=== PATIENT | male | born 1970 | race Caucasian/White ===

== ENCOUNTER 2021-06-07 20:51 | Observation (INO) | payer OTHER, SELFPAY ==
[2021-06-07 20:57] VITALS: BP 143/99; PULSE 98; RESP 18; TEMP 36.9; O2SAT 96
--- NOTE | 2021-06-07 21:25 | W.ED.GENAD ---
Discharge Plan Disposition Patient Disposition: [facility] INPATIENT Condition: Stable Discharge Details Clinical Impression: Perianal abscess, Cellulitis of buttock, left Admit Date/Time: 06/07/21 23:56 Admit Provider: Brigid Madison Attending Provider: Brigid Madison Primary Care Provider: Unknown,Unknown ED Provider: Shira Ball Discharge Data Discharge Date/Time-TO BE ENTERED AT DEPARTURE: 06/08/21 00:35 Medical Decision Making 51-year-old [facility] presents for rectal abscess the past week now more painful and draining pus and blood. Patient appears comfortable and nontoxic. His blood pressure is hypertensive and heart rate elevated. He has a 2 cm fluctuant abscess in the left perirectal region with a subcentimeter area of surrounding cellulitis. There is no crepitus or pulsatile bleeding. Due to location of abscess in close proximity to the rectum, will obtain screening labs and CT to assess extent of abscess in this region. Labs reviewed. Normal WBC. Normal lactate. Delay in obtaining CT results. CT abdomen/pelvis notes: IMPRESSION: 1. Irregularly-shaped perianal phlegmon/developing abscess with surrounding mild cellulitis. 2. Indeterminate hepatic lesions, nonemergent MRI is suggested for further characterization. Case d/w Dr. Madison who reviewed images. Recommend attempt at incision and drainage and if able to remove pus and patient tolerates this well, can discharge home with clindamycin. If patient unable to tolerate or unable to remove pus, will admit for observation and IV antibiotics. Attempted I&D at bedside. Patient initially refused due to pain but able to inject 3 cc of lidocaine with epinephrine. Incision with a #11 blade but patient having difficulty tolerating. Able to extend forceps 1-2cm deep within tissue but no pus drainage removed. Case discussed with Dr. Madison who accepts patient for admission. IV clindamycin ordered. Ordered morphine IV for pain. Patient will remain n.p.o. Medical Records Medical records reviewed: Yes I reviewed the patient's medical records. Imaging Data Radiologic Study: Radiologist's impression: CT Abdomen And Pelvis With Contrast Exam date and time: 06/07/2021 9:25 PM Age: 51 years old Clinical indication: Other: L perirectal abscess, assess extension of abscess TECHNIQUE: Imaging protocol: Computed tomography of the abdomen and pelvis with contrast. Radiation optimization: All CT scans at this facility use at least one of these dose optimization techniques: automated exposure control; mA and/or kV adjustment per patient size (includes targeted exams where dose is matched to clinical indication); or iterative reconstruction. Contrast material: OMNIPAQUE 350; Contrast volume: 100 ml; Contrast route: INTRAVENOUS (IV); COMPARISON: No relevant prior studies available. FINDINGS: Lungs: Trace linear atelectasis and/or scarring in the right lung base. No consolidation. Pleural spaces: No pleural effusion. Heart: Normal heart size without pericardial effusion. Liver: 1.4 cm low-attenuation lesion in the left hepatic lobe, indeterminate (series 4, image 19). An additional low-attenuation lesion in the inferior right hepatic lobe measures 0.7 cm (series 4, image 36). Otherwise within normal limits. Gallbladder and bile ducts: Normal. No calcified stones. No ductal dilation. Pancreas: Normal. No ductal dilation. Spleen: Normal. No splenomegaly. Adrenal glands: Normal. No mass. Kidneys and ureters: Several subcentimeter hypoattenuating lesions in both kidneys are too small to further characterize. Stomach and bowel: The stomach is within normal limits. No bowel obstruction or wall thickening. Moderate to large volume of stool in the colon. Appendix: Normal appendix. Intraperitoneal space: No free fluid, pneumoperitoneum, or intra-abdominal drainable fluid collection. Vasculature: No abdominal aortic aneurysm. Lymph nodes: No enlarged lymph nodes. Urinary bladder: Unremarkable as visualized. Reproductive: Unremarkable as visualized. Bones/joints: Degenerative changes of the spine. No acute fracture or malalignment. Soft tissues: In the perianal soft tissues, there is an irregularly-shaped region of low attenuation, difficult to measure given the shape but approximately 1.9 x 0.9 x 2.1 cm (series 4, images 96 through 92 and series 7 images 61 through 57) in keeping with phlegmon/developing abscess. There is trace surrounding infiltration in keeping with cellulitis. The low-attenuation is in the midline inferiorly and extends to the left of midline more superiorly centered approximately 1.0 cm to the left of the anal fold on series 4, image 93). No intra-abdominal extension. IMPRESSION: 1. Irregularly-shaped perianal phlegmon/developing abscess with surrounding mild cellulitis. 2. Indeterminate hepatic lesions, nonemergent MRI is suggested for further characterization. Lab Data Lab results reviewed: Yes I reviewed the patient's lab results. Labs: 06/07/21 22:30 Blood Blood Culture - Pending 06/07/21 21:35 Blood Blood Culture - Pending Laboratory Tests Range/Units 06/07/21 06/07/21 06/07/21 21:35 21:35 21:35 WBC (4.4-10.8) 10^3/uL 7.03 RBC (4.36-5.78) 10^6/uL 3.89 L Hgb (13.5-17.5) g/dL 11.7 L Hct (40.0-50.0) % 34.4 L MCV (80-95) fL 88.4 MCH (27.0-33.0) pg 30.1 MCHC (32.0-36.0) % 34.0 RDW (11.8-14.1) % 11.9 Plt Count (130-400) 10^3/uL 167 MPV (8.0-11.0) fL 9.9 Immature Gran % 0.3 Neutrophils % 69.9 Lymphocytes % 16.1 Monocytes % 11.8 Eosinophils % 1.6 Basophils % 0.3 Nucleated RBC % % 0 Absolute Neutrophils (1.2-6.7) 10^3/uL 4.92 Absolute Lymphocytes (1.2-3.4) 10^3/uL 1.13 L Absolute Monocytes (0.1-0.8) 10^3/uL 0.83 H Absolute Eosinophils (0.0-0.7) 10^3/uL 0.11 Absolute Basophils (0.0-0.2) 10^3/uL 0.02 VBG Lactate (0.6-1.4) mmol/L 1.0 Sodium (136-145) mmol/L 138 Potassium (3.5-5.1) mmol/L 3.9 Chloride (98-107) mmol/L 102 Carbon Dioxide (21.0-32.0) mmol/L 34.8 H Anion Gap (3-11) mmol/L 1.2 L BUN (7-18) mg/dL 16 Creatinine (0.70-1.30) mg/dL 1.0 Estimated GFR/1.73 m2 (mL/min/1.73m2) >= 60.00 Glucose (74-106) mg/dL 111 H Calcium (8.5-10.1) mg/dL 8.8 Total Bilirubin (0.2-1.0) mg/dL 0.6 AST (15-37) U/L 78 H ALT (16-63) U/L 29 Alkaline Phosphatase (46-116) U/L 65 Total Protein (6.4-8.2) g/dL 7.7 Albumin (3.4-5.0) g/dL 3.5 HPI General Mode of arrival: ambulatory. Date/Time Provider Initiated Documentation: 06/07/21 21:01. Limitations to Documentation: no limitations. Information obtained by: patient. HPI Narrative: Patient is a 51-year-old male from the [facility] presents with painful abscess to his left buttock for the past week, now draining pus and blood and more painful today. Patient states he was evaluated by medical staff at the [facility] and told he likely had a hemorrhoid. He denies any fever or abdominal pain but does admit to a few episodes of vomiting. States his last bowel movement was 2 days ago and soft. States he has a BM normally daily. Related Data Home Medications Medication Instructions Recorded Confirmed calcium 1,000 mg PO TID PRN 06/07/21 06/07/21 cocoa butter-shark liver oil 1 supp MD BID 06/07/21 06/07/21 [Hemorrhoidal H] docusate sodium 100 mg PO BID 06/07/21 06/07/21 hydroxyzine HCl 50 mg PO QHS 06/07/21 06/07/21 ibuprofen 600 mg PO BID PRN 06/07/21 06/07/21 ondansetron HCl [Zofran] 8 mg PO Q8H PRN 06/07/21 06/07/21 Allergies Allergy/AdvReac Type Severity Reaction Status Date / Time No Known Allergies Allergy Unverified 06/07/21 21:01 General Stated Complaint: Cellulitis JANESSA: 3 Review of Systems All systems reviewed & are unremarkable except as noted in HPI and below Constitutional Constitutional: Reports as per HPI, Denies chills and Denies fever(s) Eyes Eyes: Denies blurry vision ENT Ears, Nose, Mouth, and Throat: Denies dizziness, Denies sore throat and Denies throat swelling Cardiovascular Cardiovascular: Denies chest pain and Denies dyspnea Respiratory Respiratory: Denies cough and Denies dyspnea Gastrointestinal Gastrointestinal: Denies abdominal pain, Denies diarrhea and Denies vomiting Genitourinary Genitourinary: Denies hematuria and Denies dysuria Musculoskeletal Musculoskeletal: Denies back pain and Denies numbness Integumentary/Breasts Skin/Breast: Reports lesions and Denies rash Neurologic Neurologic: Denies dizziness, Denies localized weakness and Denies numbness Allergic/Immunologic Allergic/Immunologic: Denies throat swelling [facility] Medical History No significant past medical history Surgical History History of facial surgery Hardware to L jaw History of tonsillectomy Social History Smoking/Tobacco Use Status: Never Smoking risk assessment performed?: Yes Alcohol Intake: former Substance use type: does not use Do you feel safe at home: Yes Additional Social history: pt is currently an inmate at [facility] Exam Const General: cooperative and no acute distress HENMT Head: normal to inspection Face and sinus: normal facial exam Eyes General: appearance normal, both eyes and all related structures EOM: EOM intact bilaterally Neck Neck: normal visual inspection and No submandibular swelling Lymphatic: no lymphadenopathy noted Chest Chest: normal inspection of the chest and no tenderness Resp Effort & Inspection: normal respiratory effort and able to speak in complete sentences Auscultation: clear to auscultation bilaterally Cardio Rate: regular rate Rhythm: regular rhythm GI Inspection: normal to inspection Palpation: soft, not firm, not rigid and nontender Auscultation: normal bowel sounds Other: 2x2cm tender erythematous fluctuant abscess on L perirectal area with a 6cm area of induration and erythema extending from abscess on L buttock. No crepitus, rash, lesions or thrombosed hemorrhoids. Male General Exam: Yes normal external exam Skin General skin exam: no rashes or lesions noted Neuro General: patient alert, patient awake and patient oriented x3 Cognition: normal cognition Speech: speech normal Motor: muscle tone normal throughout Sensory Exam: no sensory deficits noted Extrem General: normal to inspection, full ROM, capillary refill normal, no calf tenderness bilaterally and no edema Psych Appearance: grossly normal Mental Status: mental status grossly normal Speech and Movement: speech and movement normal Affect: normal affect Course Vital Signs Vital signs: Vital Signs Temperature 98.4 F 06/07/21 20:57 Pulse 98 H 06/07/21 20:57 Respiratory Rate 18 06/07/21 20:57 Blood Pressure 143/99 H 06/07/21 20:57 Pulse Oximetry 96 06/07/21 20:57 Temperature 98.4 F 06/07/21 20:57 Temperature Source Skin 06/07/21 20:57 Pulse 98 H 06/07/21 20:57 Respiratory Rate 18 06/07/21 20:57 Respiratory Effort 06/07/21 21:10 Blood Pressure 143/99 H 06/07/21 20:57 Pulse Oximetry 96 06/07/21 20:57 Pain Level 10 06/07/21 20:57 Lab/Test Results Lab/Test Results: 06/07/21 21:22 Blood Blood Culture - Pending 06/07/21 21:22 Blood Blood Culture - Pending Procedures Abscess I/D Site: Trena-rectal (trena-anal) Side (if applicable): Left Local Anesthetic: Lidocaine 1% and With Epi Amount of anesthesia used (mL): 3 Technique: Incised with #11 Blade (x incision made over area of greatest fluctuance) Amount of fluid expressed (mL): 0 (used forceps to extend 1-2cm deep and laterally within tissue but no pus drainage) Irrigation: Yes Packing used?: None
[2021-06-07 21:49] LABS: Abs Immature Grans 0.02 10^3/uL (0.0-0.06); Absolute Basophil Count 0.02 10^3/uL (0.0-0.2); Absolute Eosinophil Count 0.11 10^3/uL (0.0-0.7); Absolute Lymphocyte Count 1.13 10^3/uL (1.2-3.4); Absolute Monocyte Count 0.83 10^3/uL (0.1-0.8); Absolute Neutrophil Count 4.92 10^3/uL (1.2-6.7); Basophils % 0.3; Eosinophils % 1.6; HCT 34.4 % (40.0-50.0); HGB 11.7 g/dL (13.5-17.5); Immature Grans % 0.3; Lymphocytes % 16.1; MCH 30.1 pg (27.0-33.0); MCV 88.4 fL (80-95); MPV 9.9 fL (8.0-11.0); Monocytes % 11.8; Neutrophils % 69.9; Nucleated RBC 0 %; Platelet Count 167 10^3/uL (130-400); RBC 3.89 10^6/uL (4.36-5.78); RDW 11.9 % (11.8-14.1); RDW-SD 38.1 fL; WBC 7.03 10^3/uL (4.4-10.8)
[2021-06-07] MEDS: Normal Saline Flush 10 ML SYR IVP (22:00)
[2021-06-07] MEDS: Normal Saline - Diluent 50 ML VIAL IV (22:00)
--- NOTE | 2021-06-07 22:05 | DI.CT_ITS ---
Exam(s) CT ABDOMEN PELVIS W EXAM: CT ABDOMEN PELVIS W CLINICAL HISTORY: L perirectal abscess, assess extension of abscess TECHNIQUE: Imaging Protocol: Axial computed tomography images with coronal and sagittal reformatted images were created and reviewed CONTRAST MATERIAL: Intravenous: Omnipaque 350 Contrast volume:100 mL Oral: No COMPARISON: No exams were available for comparison FINDINGS: ABDOMEN: Lung Bases: Dependent atelectasis. Coronary artery calcification. Liver: Normal density. There are 2 hypodense masses within the liver. The larger is in the left lobe and measures 1.5 x 1.5 cm. The 2nd is in the right lobe caudal aspect of the right lobe and measure s 1 x 0.7 cm. Portal, Superior Mesenteric, and Splenic Veins: Unremarkable. Gallbladder and Biliary Tract: No radiodense calculus or dilation. Pancreas: Normal density, no abnormal calcifications or inflammatory process. Spleen: Normal. Adrenals: No masses seen. Kidneys: Normal size, contour and axis. No radiodense stones or obstructive uropathy. There are few t iny hypodensities in the kidneys. They are too small for further characterization but likely reflect small cysts. Abdominal Aorta: Abdominal portion non-dilated. Mild atherosclerosis. Bowel: No obstruction or bowel wall thickening. Appendix is unremarkable. Peritoneal Cavity: No ascites, collection or mesenteric inflammatory response. No free air. Lymph Nodes: Within normal limits. Bones: Within normal limits for the patient's age. Soft Tissues: There is a small fat containing umbilical hernia. There is a small fat containing left inguinal hernia. In the perianal soft tissues there is a fluid attenuation lesion measuring approxi mately 2 x 1 x 2.1 cm. (Series 5 images 910 through 960). There is infiltration of the surrounding tissues consistent with cellulitis. Findings are consistent with a perianal abscess. PELVIS: Bladder: Symmetric distention, no gross wall thickening. Reproductive Organs: Unremarkable as visualized. Lymph Nodes: Within normal limits. Bones: Within normal limits for the patient's age. IMPRESSION: 1. Perianal fluid collection with surrounding inflammation suggestive of an abscess with surrounding cellulitis. 2. Indeterminate hepatic lesions. Nonemergent MRI of the liver is recommended for further evaluation . RADIATION DOSE DELIVERED: 792.09mGy.cm Total DLP DATA REPOSITORY: All CT scans at this facility are submitted to the National Radiology Data Registry (NRDR) Dose Index Registry (DIR) with the [employer] (ACR). RADIATION OPTIMIZATION: All CT scans at this facility use at least one of these dose optimization te chniques: automated exposure control; mA and/or kV adjustment per patient size (includes targeted exa ms where dose is matched to clinical indication); or iterative reconstruction.
[2021-06-07 22:22] LABS: ALT 29 U/L (16-63); AST 78 U/L (15-37); Albumin 3.5 g/dL (3.4-5.0); Alkaline Phosphatase 65 U/L (46-116); Anion Gap 1.2 mmol/L (3-11); BUN 16 mg/dL (7-18); Bilirubin, Total 0.6 mg/dL (0.2-1.0); CO2 34.8 mmol/L (21.0-32.0); Calcium 8.8 mg/dL (8.5-10.1); Chloride 102 mmol/L (98-107); Glucose 111 mg/dL (74-106); Potassium 3.9 mmol/L (3.5-5.1); Sodium 138 mmol/L (136-145); Total Protein 7.7 g/dL (6.4-8.2)
[2021-06-07] MEDS: Normal Saline 1,000 ML 1000 ML IV (22:24)
[2021-06-07] MEDS: ACETAMINOPHEN 1,000 MG/100 ML BTL 400 MG IVPB (22:25)
[2021-06-07] MEDS: Lidocaine/Epinephri/Tetracaine Topical Gel 3 ML (23:02)
--- NOTE | 2021-06-07 23:12 | DI.VRAD_ITS ---
PROCEDURE INFORMATION: Exam: CT Abdomen And Pelvis With Contrast Exam date and time: 06/07/2021 9:25 PM Age: 51 years old Clinical indication: Other: L perirectal abscess, assess extension of abscess TECHNIQUE: Imaging protocol: Computed tomography of the abdomen and pelvis with contrast. Radiation optimization: All CT scans at this facility use at least one of these dose optimization techniques: automated exposure control; mA and/or kV adjustment per patient size (includes targeted exams where dose is matched to clinical indication); or iterative reconstruction. Contrast material: OMNIPAQUE 350; Contrast volume: 100 ml; Contrast route: INTRAVENOUS (IV); COMPARISON: No relevant prior studies available. FINDINGS: Lungs: Trace linear atelectasis and/or scarring in the right lung base. No consolidation. Pleural spaces: No pleural effusion. Heart: Normal heart size without pericardial effusion. Liver: 1.4 cm low-attenuation lesion in the left hepatic lobe, indeterminate (series 4, image 19). An additional low-attenuation lesion in the inferior right hepatic lobe measures 0.7 cm (series 4, image 36). Otherwise within normal limits. Gallbladder and bile ducts: Normal. No calcified stones. No ductal dilation. Pancreas: Normal. No ductal dilation. Spleen: Normal. No splenomegaly. Adrenal glands: Normal. No mass. Kidneys and ureters: Several subcentimeter hypoattenuating lesions in both kidneys are too small to further characterize. Stomach and bowel: The stomach is within normal limits. No bowel obstruction or wall thickening. Moderate to large volume of stool in the colon. Appendix: Normal appendix. Intraperitoneal space: No free fluid, pneumoperitoneum, or intra-abdominal drainable fluid collection. Vasculature: No abdominal aortic aneurysm. Lymph nodes: No enlarged lymph nodes. Urinary bladder: Unremarkable as visualized. Reproductive: Unremarkable as visualized. Bones/joints: Degenerative changes of the spine. No acute fracture or malalignment. Soft tissues: In the perianal soft tissues, there is an irregularly-shaped region of low attenuation, difficult to measure given the shape but approximately 1.9 x 0.9 x 2.1 cm (series 4, images 96 through 92 and series 7 images 61 through 57) in keeping with phlegmon/developing abscess. There is trace surrounding infiltration in keeping with cellulitis. The low-attenuation is in the midline inferiorly and extends to the left of midline more superiorly centered approximately 1.0 cm to the left of the anal fold on series 4, image 93). No intra-abdominal extension. IMPRESSION: 1. Irregularly-shaped perianal phlegmon/developing abscess with surrounding mild cellulitis. 2. Indeterminate hepatic lesions, nonemergent MRI is suggested for further characterization. Dictated and Authenticated by: Vida Gonzalez MD. Ordering:ASIF Silva MD
[2021-06-08] MEDS: CLINDAMYCIN 900 MG/50 ML BAG 50 MG IVPB (00:04)
[2021-06-08] MEDS: Normal Saline 1,000 ML 150 ML IV ×2 (00:05→07:58)
--- NOTE | 2021-06-08 00:09 | NUR.NOTE ---
Report to ISRAEL Rowan at correctional facility.Nursing Note:
[2021-06-08 00:12] VITALS: BP 113/52; PULSE 79; RESP 16; O2SAT 93
[2021-06-08 00:21] LABS: Source Nasal/Nares
[2021-06-08 00:38] VITALS: BP 99/68; PULSE 73; RESP 16; TEMP 36.8; O2SAT 93
[2021-06-08] MEDS: CLINDAMYCIN 600 MG/50 ML BAG 100 MG IVPB (08:57)
--- NOTE | 2021-06-08 09:08 | INITIAL_ITS ---
- If Service Date Differs Date of service: 06/08/21 Time of Service: 09:08 Care Management Initial Assess REASON FOR HOSPITALIZATION:: Perianal abscess, buttock cellulitis PAST MEDICAL HISTORY/PAST SURGICAL HISTORY:: Perianal abscess, cellulitis of buttock PREVIOUS FUNCTIONAL STATUS/SOCIAL/FAMILY SUPPORTS:: Kevin presents to [facility] from [facility]. The facility is responsible for managing all of his care and service needs. CURRENT FUNCTIONAL STATUS:: In bed with [facility] staff present. ADVANCE DIRECTIVES:: None on file, HIPPA lists daughter: Deanne, Mother: Kerri, friend: Tyler, Applications Sales Consultant: Benjamin and POA: Suzie Martel. Has patient been provided with info about the portal/API?: No Did the patient sign up for the portal?: No CODE STATUS:: Full Code INSURANCE COVERAGE / FINANCIAL ISSUES:: [employer] CURRENT HOME/COMMUNITY SERVICES/EQUIPMENT:: Correctional facility-current inmate. PRIMARY CARE PHYSICIAN:: Pilar at [facility] manages all care needs: . POTENTIAL DISCHARGE NEEDS:: Clinical review with [facility]. PATIENT/FAMILY EDUCATION NEEDS:: Review of discharge instructions, discuss Ask Me Three. ANTICIPATED BARRIERS TO DISCHARGE:: None identified. TRANSPORTATION:: Via [facility] secure transport. PLAN:: Kevin will return to the [facility] when ready per MD. He will transport via the facility's secure transport van. Pilar [facility] manages all care needs: . continues to follow.
[2021-06-08 09:33] LABS: COVID-19 PCR Negative (Negative)
[2021-06-08 10:44] VITALS: BP 100/63; PULSE 75; RESP 18; TEMP 36.7; O2SAT 95
--- NOTE | 2021-06-08 10:57 | W.ANESPRE ---
General Info Date of Service Date Performed: 06/08/21 Height: 5 ft 10 in Weight: 170 kg Body Mass Index (BMI): 53.7 Surgical Procedure: Operation Date: 06/08/21 12:10 Proposed Procedures Side Surgeon p Excision-Trena Rectal Abscess Brigid Madison MD Meds Allergies and Home Medications Allergies Allergy/AdvReac Type Severity Reaction Status Date / Time No Known Allergies Allergy Unverified 06/07/21 21:01 Home Medication Medication Instructions Recorded calcium 1,000 mg PO TID PRN 06/07/21 cocoa butter-shark liver oil 1 supp GA BID 06/07/21 [Hemorrhoidal H] docusate sodium 100 mg PO BID 06/07/21 hydroxyzine HCl 50 mg PO QHS 06/07/21 ibuprofen 600 mg PO BID PRN 06/07/21 ondansetron HCl [Zofran] 8 mg PO Q8H PRN 06/07/21 Current Visit Medications: Current Medications Generic Name Dose Route Start Last Admin Trade Name Freq PRN Reason Stop Dose Admin Sodium Chloride 1,000 mls @ 150 mls/hr 06/07/21 23:45 06/08/21 07:58 Saline 1000ml Bag IV 150 mls/hr INFUSION DOUG Administration Clindamycin Phosphate/Dextrose 600 mg in 50 mls @ 100 mls/hr 06/08/21 08:00 06/08/21 08:57 Cleocin In D5w IVPB 100 mls/hr Q8H DOUG Administration Iohexol 100 ml 06/07/21 22:00 Omnipaque 350 Mg/Ml 100 Ml Btl IJ 07/07/21 23:59 DIRECTED DOUG Morphine Sulfate 2 mg 06/07/21 23:55 Morphine 2 Mg/Ml Syr IVP Q2H PRN Ondansetron HCl 4 mg 06/07/21 23:55 Ondansetron 4 Mg/2 Ml Vial IVP Q4H PRN PRN Sodium Chloride 50 ml 06/07/21 22:00 06/07/21 22:00 Normal Saline - Diluent 50 Ml Vial IV 50 ml .FOR DI USE DOUG Administration Sodium Chloride 0 ml 06/07/21 22:00 06/07/21 22:00 Normal Saline Flush 10 Ml Syr IVP 10 ml PRN PRN Administration PFSH Active Problems Active Problems: Problem Status Onset Code Perianal abscess K61.0 Cellulitis of buttock, left L03.317 Medical History Medical History (Updated 06/08/21 @ 00:01 by Shira Ball DO) No significant past medical history Surgical History Surgical History (Updated 06/07/21 @ 21:30 by Shira Ball DO) History of facial surgery Hardware to L jaw History of tonsillectomy Tobacco Smoking/Tobacco Use Status: Never Alcohol Alcohol Intake: former Substance Use Substance use type: does not use Vital Signs and Lab Results Vital Signs Most Recent Vital Signs in EMR: Most Recent Vital Signs Temp Pulse Resp BP Pulse Ox 36.7 C 75 18 100/63 95 06/08/21 10:44 06/08/21 10:44 06/08/21 10:44 06/08/21 10:44 06/08/21 10:44 Lab Results Result Diagrams: 06/07/21 21:35 06/07/21 21:35 Blood Type / Crossmatch: No Data to Display Complete Blood Count: White Blood Count 7.03 10^3/uL (4.4-10.8) 06/07/21 21:35 06/07/21 Red Blood Count 3.89 10^6/uL (4.36-5.78) L 06/07/21 21:35 06/07/21 Hemoglobin 11.7 g/dL (13.5-17.5) L 06/07/21 21:35 06/07/21 Hematocrit 34.4 % (40.0-50.0) L 06/07/21 21:35 06/07/21 Platelet Count 167 10^3/uL (130-400) 06/07/21 21:35 06/07/21 Venous Blood Lactate 1.0 mmol/L (0.6-1.4) 06/07/21 21:35 06/07/21 Complete Metabolic Panel: Sodium Level 138 mmol/L (136-145) 06/07/21 21:35 06/07/21 Potassium Level 3.9 mmol/L (3.5-5.1) 06/07/21 21:35 06/07/21 Chloride Level 102 mmol/L (98-107) 06/07/21 21:35 06/07/21 Carbon Dioxide Level 34.8 mmol/L (21.0-32.0) H 06/07/21 21:35 06/07/21 Blood Urea Nitrogen 16 mg/dL (7-18) 06/07/21 21:35 06/07/21 Creatinine 1.0 mg/dL (0.70-1.30) 06/07/21 21:35 06/07/21 Estimated GFR/1.73 m2 >= 60.00 (mL/min/1.73m2) 06/07/21 21:35 06/07/21 Calcium Level 8.8 mg/dL (8.5-10.1) 06/07/21 21:35 06/07/21 Albumin 3.5 g/dL (3.4-5.0) 06/07/21 21:35 06/07/21 Glucose Level 111 mg/dL (74-106) H 06/07/21 21:35 06/07/21 Liver Function Panel: Alanine Aminotransferase (ALT/SGPT) 29 U/L (16-63) 06/07/21 21:35 06/07/21 Aspartate Amino Transf (AST/SGOT) 78 U/L (15-37) H 06/07/21 21:35 06/07/21 Coagulation Panel: No Data to Display Cardiac Panel: No Data to Display Arterial Blood Gas: No Data to Display Venous Blood Gas: No Data to Display Pancreas Panel: No Data to Display Thyroid Panel: No Data to Display Infectious Disease: Coronavirus (COVID-19)(PCR) Negative (Negative) 06/08/21 00:15 06/08/21 Coronavirus 2019 Source Nasal/Nares 06/08/21 00:15 06/08/21 Blood Cultures: No Data to Display Toxicology Panel: No Data to Display Anesthesia Assessment and Plan Anesthesia History Personal History: No History of Anesthesia Complications Family History: No Family History of Anesthesia Complications Exercise Tolerance Exercise Tolerance: Metabolic Equivalents>4 Pertinent Negatives Pertinent Negatives: No Symptoms of GERD, No Major Cardiovascular Symptoms or Complaints and No Major Pulmonary Symptoms or Complaints Cardiac & Pulmonary Exam Cardiac Exam: Normal S1/S2 Heart Sounds Pulmonary Exam: Clear Bilateral Breath Sounds Airway Exam Known Difficult Airway: No Mallampati Class: 2 Mouth Opening: Normal (> 3cm) Thyromental Distance: Greater than 3 cm Neck Range of Motion: Full ROM Neck Circumference: Normal Teeth Condition: Dental Caries ASA Classification ASA Score: ASA 2 Emergency Case?: No NPO Status NPO Status: NPO Clears >2 hours, Solids >8 hours Anesthesia Plan Resuscitation Status: Full Code Anesthesia Technique: Spinal Anesthesia Airway Planned: Natural Airway Monitors Used: Standard Monitors
[2021-06-08 11:24] VITALS: BMI 53.7
[2021-06-08] MEDS: Lactated Ringers 1,000 ML 100 ML IV (12:15)
--- NOTE | 2021-06-08 13:09 | HPE_ITS ---
Date of service: 06/08/21 Time of Service: 13:09 Assessment and Plan Assessment and plan (1) Perianal abscess: Status: Acute Assessment and plan: Patient will be taken to the OR for incision and drainage. Please see HPI for risks and benefits Patient will be admitted postoperatively for IV antibiotics and pain control He will require daily dressing changes and packing changes Patient is currently an inmate at [facility] (2) Cellulitis of buttock, left: Status: Acute History of Present Illness Consults Consult date: 06/09/21 Narrative: I did review the ER notes. He has a per-rectal abscess at the 11 o'clock position. Presents require incision and drainage. Risks of the procedure include but not limited to: Bleeding, infection, pneumonia, blood bladder antibiotic anesthesia, she healed by secondary intent and today packing dressing changes. Recurrent. Damage to resulting in left control or stenosis. Chronic pain chronic numbness. Patient is currently incarcerated for PUI. He is not smoking currently. He is on hydroxyzine for sleep. He is not on any other medications. He has no allergies. He is not diabetic. He is not on steroids. He has never had a heart attack or stroke. He has never had any prior problems with infections. He has never had any prior anal disease. He denies any trauma or injury.. In the perianal soft tissues there is a fluid attenuation lesion measuring approximately 2 x 1 x 2.1 cm. (Series 5 images 910 through 960). There is infiltration of the surrounding tissues consistent with cellulitis. Findings are consistent with a perianal abscess. ER did attempt a incision and drainage with just local and he did not tolerate this well. Patient will be taken to the OR for drainage Review of Systems All systems reviewed & are unremarkable except as noted in HPI and below [facility] Medical History No significant past medical history Surgical History History of facial surgery Hardware to L jaw History of tonsillectomy Social History Smoking/Tobacco Use Status: Never Smoking risk assessment performed?: Yes Alcohol Intake: former Substance use type: does not use Do you feel safe at home: Yes Additional Social history: pt is currently an inmate at [facility] Meds Allergies and Home Medications Allergies Allergy/AdvReac Type Severity Reaction Status Date / Time No Known Allergies Allergy Unverified 06/07/21 21:01 Home Medications Medication Instructions Recorded Confirmed Type calcium 1,000 mg PO TID PRN 06/07/21 06/07/21 History cocoa butter-shark liver oil 1 supp KS BID 06/07/21 06/07/21 History [Hemorrhoidal H] docusate sodium 100 mg PO BID 06/07/21 06/07/21 History hydroxyzine HCl 50 mg PO QHS 06/07/21 06/07/21 History ibuprofen 600 mg PO BID PRN 06/07/21 06/07/21 History ondansetron HCl [Zofran] 8 mg PO Q8H PRN 06/07/21 06/07/21 History Exam Resp Effort & Inspection: normal respiratory effort and able to speak in complete sentences Auscultation: clear to auscultation bilaterally Cardio Rate: regular rate Rhythm: regular rhythm GI Palpation: soft Other: non tender see HPI perirectal abscess in the 5 o'clock position Results Labs Result diagrams: 06/07/21 21:35 06/07/21 21:35 Labs: Laboratory Results - last 24 hr 06/07/21 06/07/21 06/07/21 21:35 21:35 21:35 WBC 7.03 RBC 3.89 L Hgb 11.7 L Hct 34.4 L MCV 88.4 MCH 30.1 MCHC 34.0 RDW 11.9 Plt Count 167 MPV 9.9 Immature Gran % 0.3 Neutrophils % 69.9 Lymphocytes % 16.1 Monocytes % 11.8 Eosinophils % 1.6 Basophils % 0.3 Nucleated RBC % 0 Absolute Neutrophils 4.92 Absolute Lymphocytes 1.13 L Absolute Monocytes 0.83 H Absolute Eosinophils 0.11 Absolute Basophils 0.02 VBG Lactate 1.0 Sodium 138 Potassium 3.9 Chloride 102 Carbon Dioxide 34.8 H Anion Gap 1.2 L BUN 16 Creatinine 1.0 Estimated GFR/1.73 m2 >= 60.00 Glucose 111 H Calcium 8.8 Total Bilirubin 0.6 AST 78 H ALT 29 Alkaline Phosphatase 65 Total Protein 7.7 Albumin 3.5 COVID-19 Source SARS-CoV-2 (PCR) 06/08/21 00:15 WBC RBC Hgb Hct MCV MCH MCHC RDW Plt Count MPV Immature Gran % Neutrophils % Lymphocytes % Monocytes % Eosinophils % Basophils % Nucleated RBC % Absolute Neutrophils Absolute Lymphocytes Absolute Monocytes Absolute Eosinophils Absolute Basophils VBG Lactate Sodium Potassium Chloride Carbon Dioxide Anion Gap BUN Creatinine Estimated GFR/1.73 m2 Glucose Calcium Total Bilirubin AST ALT Alkaline Phosphatase Total Protein Albumin COVID-19 Source Nasal/Nares SARS-CoV-2 (PCR) Negative Last Vital Signs Temp 36.7 C 06/08/21 10:44 Pulse 75 06/08/21 10:44 Resp 18 06/08/21 10:44 BP 100/63 06/08/21 10:44 Pulse Ox 95 06/08/21 10:44
[2021-06-08] MEDS: Bupivacaine LIPOSOME/PF 133 MG/10 ML VIAL IJ (13:30)
[2021-06-08] MEDS: Bupivacaine 0.25% Pres-Free 30 ML VIAL (13:30)
--- NOTE | 2021-06-08 13:30 | BOWEL_PTH ---
PATIENT: Kevin Holland LOC: U#:[id number] AGE/SX: 51/M ROOM: [id number] RE06/07/[address]: Brigid Madison MD : [id number] BED: A DIS: 06/10/2021 SPEC #: [id number] RECD: 06/08/21 17:51 STATUS: SOUKassie REQ #: [id number] AB: 06/08/21 13:[address]: Taty Nichole DEPT: Surgical Specimen RECD BY: Zelda Flores ENTERED: 06/08/21 17:51 SP TYPE: Bowel OTHR DR: Brigid Madison MD Unknown,Unknown Tissues: 1 - BIOPSY BOWEL Procedures: GROSS AND MICRO LEVEL 4 Comments: [id number]
[2021-06-08 13:48] VITALS: BP 108/69; PULSE 69; RESP 18; TEMP 36.7; O2SAT 98
--- NOTE | 2021-06-08 14:07 | W.ANESPOSTOP ---
Postoperative Evaluation Date, Time and Location Date Performed: 06/08/21 Time Performed: 14:07 Patient Location: Med/Surg Vital Signs Most Recent Imported Vital Signs: Most Recent Vital Signs Temp Pulse Resp BP Pulse Ox 36.7 C 69 18 108/69 98 06/08/21 13:48 06/08/21 13:48 06/08/21 13:48 06/08/21 13:48 06/08/21 13:48 Pain Score Most Recent Pain Score: Most Recent Pain Score Pain Level 0 06/08/21 13:48 Assessment Mental Status: Awake (Alert & Oriented to Patient Baseline) Airway and Respiratory Function: Patent airway with normal (patient baseline) respiratory exam Cardiovascular Function: Hemodynamically Stable Hydration Status: Adequately Hydrated Nausea & Vomiting: No Nausea or Vomiting Pain: Pt. Denies Any Pain Peripheral Nerve Block: Patient did not receive a nerve block
--- NOTE | 2021-06-08 14:21 | W.PM.OP ---
Date of service: 06/08/21 Time of Service: 14:21 Operative Note Operative Note DATE OF PROCEDURE: 06/08/21 PRE-OP DIAGNOSIS: paula-rectal abscess POST-OP DIAGNOSIS: same PROCEDURE: I&D SURGEON: Taty Nichole ANESTHESIA TYPE: Local By Surgeon and Other Refer to Anesthesia Record ESTIMATED BLOOD LOSS: 5 PATHOLOGY: other COMPLICATIONS: None Patient was transported to: PACU Implants: packing Procedure Description: Patient is a 51-year-old male presents to the ER with acute perirectal pain. The ER did attempt to do a incision and drainage but could not tolerate the procedure being attempted at bedside. Patient is being brought to the OR for incision and drainage informed consent is obtained explaining risks and benefits of procedure including but not limited to: Bleeding, infection, pneumonia, blood clots. Complications of anesthesia. Damage to the sphincter including chronic pain, chronic numbness, stenosis, loss of control. Need for possible repeat procedure. Patient will need to do daily packing and dressing changes. Will need to heal by secondary intent which can take several weeks to several months. Patient has been started on antibiotics previously. He is brought to the operating room suite. Anesthesia is administered per the department of anesthesia. Patient is then placed in the prone position with all bony surfaces padded. He is prepped and draped in usual sterile fashion using a Betadine scrub solution. Timeout is performed. The wound is explored. He has a open draining sinus at the 11 o'clock position in reverse anatomical position. A probe was placed through this defect in does come out at approximately the 8 o'clock position. This is above the sphincters. This is opened up using electrocautery. There is some indurated tissue around the opening. This is sent for pathology to ensure that there is no underlying malignancy. Although this this does not appear to be the case from gross visualization. Electrocautery was used to provide hemostasis. Cultures were not taken as patient been previously started on antibiotics. Cautery was used to remove the necrotic tissue. There is a secondary cavity that lies somewhat deeper but outside of the rectal sphincters that transverses from 8:00 to the 6 o'clock position. The total cavity is 15 x 4 x 2 cm. All pockets are opened up. All necrotic tissue is debrided. Is irrigated with 2 L of saline. Again cautery is used to provide hemostasis. It is infiltrated with 10 cc of Exparel. It is packed. Sterile dressings are applied. Patient tolerated procedure well and transferred recovery room stable condition. He will be admitted for IV antibiotics and pain control. This note is created using voice activated software and may contain errors.
[2021-06-08] MEDS: Magnesium Citrate 300 ML BTL 150 ML PO (15:07)
[2021-06-08] MEDS: Acetaminophen 500 MG TAB 1000 MG PO ×2 (16:19→21:09)
[2021-06-08] MEDS: Enoxaparin 40 MG/0.4 ML SYR SC (16:20)
[2021-06-08] MEDS: PIPERACILLIN/TAZO 3.375 GM in Normal Saline 50 ML IVPB ×2 (16:20→21:10)
[2021-06-08 16:27] VITALS: BP 114/69; PULSE 66; RESP 18; TEMP 36.4; O2SAT 100
[2021-06-08] MEDS: MORPHine 2 MG/ML SYR IVP ×3 (17:37→21:09)
[2021-06-08] MEDS: Normal Saline Flush 10 ML SYR IVP ×2 (18:47→21:10)
[2021-06-08] MEDS: Normal Saline 500 ML 30 ML IV (21:29)
[2021-06-08 23:30] VITALS: BP 119/71; PULSE 71; RESP 18; TEMP 36.5; O2SAT 97
[2021-06-09] MEDS: MORPHine 2 MG/ML SYR IVP ×10 (02:29→22:30)
[2021-06-09] MEDS: Normal Saline Flush 10 ML SYR IVP ×9 (02:30→22:29)
[2021-06-09] MEDS: PIPERACILLIN/TAZO 3.375 GM in Normal Saline 50 ML IVPB ×4 (04:26→22:30)
[2021-06-09] MEDS: Acetaminophen 500 MG TAB 1000 MG PO ×4 (04:26→22:30)
[2021-06-09 07:32] VITALS: BP 114/73; PULSE 70; RESP 17; TEMP 36.2; O2SAT 95
[2021-06-09 07:39] LABS: Abs Immature Grans 0.02 10^3/uL (0.0-0.06); Absolute Basophil Count 0.02 10^3/uL (0.0-0.2); Absolute Eosinophil Count 0.19 10^3/uL (0.0-0.7); Absolute Lymphocyte Count 1.01 10^3/uL (1.2-3.4); Absolute Monocyte Count 0.69 10^3/uL (0.1-0.8); Basophils % 0.4; Eosinophils % 3.4; HCT 31.5 % (40.0-50.0); HGB 10.8 g/dL (13.5-17.5); Immature Grans % 0.4; Lymphocytes % 17.9; MCH 29.7 pg (27.0-33.0); MCHC 34.3 % (32.0-36.0); MCV 86.5 fL (80-95); Monocytes % 12.3; Neutrophils % 65.6; Nucleated RBC 0 %; Platelet Count 183 10^3/uL (130-400); RBC 3.64 10^6/uL (4.36-5.78); RDW 11.9 % (11.8-14.1); RDW-SD 37.7 fL; WBC 5.63 10^3/uL (4.4-10.8)
[2021-06-09 08:11] LABS: ALT 23 U/L (16-63); AST 39 U/L (15-37); Albumin 2.9 g/dL (3.4-5.0); Alkaline Phosphatase 53 U/L (46-116); Anion Gap 5.4 mmol/L (3-11); BUN 13 mg/dL (7-18); Bilirubin, Total 0.6 mg/dL (0.2-1.0); CO2 28.6 mmol/L (21.0-32.0); CREATININE 0.9 mg/dL (0.70-1.30); Calcium 8.3 mg/dL (8.5-10.1); Chloride 105 mmol/L (98-107); Glucose 84 mg/dL (74-106); Potassium 3.9 mmol/L (3.5-5.1); Sodium 139 mmol/L (136-145); Total Protein 6.6 g/dL (6.4-8.2)
--- NOTE | 2021-06-09 09:20 | CMPROGNOTE_ITS ---
- If Service Date Differs Date of service: 06/09/21 Time of Service: 13:20 Care Management Progress Note S/O: [place] remains inpatient at this time, continuing to be treated postoperatively with IV antibiotics and pain control. Per MD he will only require padding in his undergarments upon discharge. JENELLE notified Pilar of plan, who connected this chief writer with Dr. Cooley who requested a MD-MD review. JENELLE notified surgeon of request and provided Pilar's contact information for followup. Anticipate discharge tomorrow. JENELLE continues to follow. A: 51 year old male admitted to [facility] 06/07/21 for perianal P: Kevin [facility] when ready per MD. He will transport via the facility's secure transport van. Pilar at [facility] manages all care needs: . JENELLE continues to follow.
--- NOTE | 2021-06-09 10:39 | W.PM.PROGNOT ---
Date of Service Date of service: 06/09/21 Time of Service: 10:39 Assessment and Plan Assessment and plan (1) Perianal abscess: Status: Acute Assessment and plan: POD#1 s/p incision and drainge of perirectal abscess -Packing removed -OK to shower -IV antibiotics, currently on Zosyn -Probably discharge tomorrow (2) Cellulitis of buttock, left: Status: Acute Subjective Subjective Patient reports: no new complaints, still having pain and afebrile Exam Const General: cooperative, comfortable and no acute distress Resp Effort & Inspection: normal respiratory effort, no audible wheezes and no respiratory distress Cardio Rate: regular rate Rhythm: regular rhythm GI Inspection: normal to inspection Palpation: soft and nontender Male General Exam: No perineal induration and Yes tenderness (packing removed from perirectal incision, no signs of infection) Skin General skin exam: other (perirectal incision and drainage site without continued signs of infection) Neuro General: patient alert, patient awake and patient oriented x3 Objective Last Vital Signs Temp 97.2 F L 06/09/21 07:32 Pulse 70 06/09/21 07:32 Resp 17 06/09/21 07:32 BP 114/73 06/09/21 07:32 Pulse Ox 95 06/09/21 07:32 Laboratory Results - last 24 hr 06/09/21 06/09/21 06:47 06:47 WBC 5.63 RBC 3.64 L Hgb 10.8 L Hct 31.5 L MCV 86.5 MCH 29.7 MCHC 34.3 RDW 11.9 Plt Count 183 MPV 10.0 Immature Gran % 0.4 Neutrophils % 65.6 Lymphocytes % 17.9 Monocytes % 12.3 Eosinophils % 3.4 Basophils % 0.4 Nucleated RBC % 0 Absolute Neutrophils 3.70 Absolute Lymphocytes 1.01 L Absolute Monocytes 0.69 Absolute Eosinophils 0.19 Absolute Basophils 0.02 Sodium 139 Potassium 3.9 Chloride 105 Carbon Dioxide 28.6 Anion Gap 5.4 BUN 13 Creatinine 0.9 Estimated GFR/1.73 m2 >= 60.00 Glucose 84 Calcium 8.3 L Total Bilirubin 0.6 AST 39 H ALT 23 Alkaline Phosphatase 53 Total Protein 6.6 Albumin 2.9 L
[2021-06-09 15:44] VITALS: BP 102/62; PULSE 66; RESP 18; TEMP 36.9; O2SAT 95
[2021-06-09] MEDS: Enoxaparin 40 MG/0.4 ML SYR SC (15:57)
[2021-06-09] MEDS: Normal Saline 500 ML 30 ML IV (22:30)
[2021-06-09 23:48] VITALS: BP 100/57; PULSE 81; RESP 16; TEMP 36.9; O2SAT 96
[2021-06-10] MEDS: PIPERACILLIN/TAZO 3.375 GM in Normal Saline 50 ML IVPB ×2 (04:04→09:38)
[2021-06-10] MEDS: MORPHine 2 MG/ML SYR IVP ×2 (05:32→10:16)
[2021-06-10] MEDS: Acetaminophen 500 MG TAB 1000 MG PO ×2 (05:32→09:37)
[2021-06-10] MEDS: Normal Saline Flush 10 ML SYR IVP ×2 (05:33→09:43)
--- NOTE | 2021-06-10 09:14 | W.PM.DS.N ---
Date of service: 06/10/21 Time of Service: 09:14 DS: Diagnosis Discharge Diagnosis (1) Perianal abscess: Status: Acute Asessment and Plan: POD#2 s/p incision and drainage -Packing removed yesterday -Continue frequent bathing, especially after BM's -Will DC on PO ABX -Sitz baths BID if possible (2) Cellulitis of buttock, left: Status: Acute Discharge Plan Disposition [facility] Dis[facility] Condition: Stable Discharge Details Reason For Visit: Perianal abscess, Buttock Cellulitis Admit Date/Time: 06/07/21 23:56 Admit Provider: Brigid Madison Attending Provider: Brigid Madison Primary Care Provider: Unknown,Unknown Hospital Course Hospital Course: Patient was admitted to the hospital and started on IV antibiotics for perianal abscess that was unable to be drained in the ER. He was taken to the operating room the following day for incision and drainage and packing was placed. Packing was removed POD#1 and area appeared to be free of induration, cellulitis or pus. He remained afebrile and pain was fairly well controlled by POD#2. He was deemed stable for discharge back to the correctional facility today 06/10/2021. Home Meds and New Rx's Prescriptions: New metronidazole [Flagyl] 500 mg tablet 500 mg PO Q8H Qty: 15 RF: 0 cephalexin 500 mg capsule 500 mg PO BID Qty: 10 RF: 0 acetaminophen [Tylenol 8 Hour] 650 mg tablet extended release 650 mg PO Q8H Qty: 30 RF: 0 Continued ondansetron HCl 8 mg Tablet 8 mg PO Q8H PRNRF: 0 calcium 500 mg Tablet 1,000 mg PO TID PRNRF: 0 hydroxyzine HCl 50 mg Tablet 50 mg PO QHS RF: 0 docusate sodium 100 mg Capsule 100 mg PO BID RF: 0 ibuprofen 600 mg Tablet 600 mg PO BID PRNRF: 0 Discontinued Hemorrhoidal H Suppository 1 supp MT BID RF: 0 Discharge Instructions Additional Instructions: Important to bathe after bowel movements and if possible sitz baths twice per day. Continue antibiotics for 5 days. OK to take stool softener to help with bowel movements until area is completely healed. Referrals: Taty Nichole DO [OSTEOPATHIC DOCTOR] - (call for follow up apt, return in 2 weeks) Activity:: Activity as Tolerated Equipment/Supplies:: No Equipment Needed Diet:: As Tolerated Discharge Orders Discharge Orders: Discharge Order (Routine); Ordered 06/10/21 Ordered By: Dorcas Hodge DS: Summary Time Spent with Patient providing and/or coordinating discharge services: Greater than 30 minutes Status at Discharge Functional status at discharge: independent ambulation Overall status at discharge: patient is progressing back to baseline Mental Status: mental status grossly normal Speech and Movement: speech and movement normal Mood: congruent mood Affect: normal affect Exam Const General: cooperative, healthy appearing, comfortable and no acute distress Resp Effort & Inspection: normal respiratory effort, no audible wheezes and no respiratory distress Cardio Rate: regular rate Rhythm: regular rhythm GI Palpation: soft, no guarding and nontender Neuro General: patient alert, patient awake and patient oriented x3 Psych Mental Status: mental status grossly normal Speech and Movement: speech and movement normal Mood: congruent mood Affect: normal affect DS: Data Vitals/I&O Vitals and I&O: Vital Signs Temperature 98.4 F 06/09/21 23:48 Temperature Source Tympanic 06/09/21 23:48 Pulse 81 06/09/21 23:48 Pulse Rhythm Regular 06/10/21 05:39 Respiratory Rate 16 06/09/21 23:48 Respiratory Effort Non-Labored 06/10/21 05:39 Respiratory Depth Normal 06/10/21 05:39 Respiratory Pattern Normal 06/10/21 05:39 Blood Pressure 100/57 L 06/09/21 23:48 Pulse Oximetry 96 06/09/21 23:48 Oxygen Delivery Method Room Air 06/09/21 23:48 Oxygen Flow Rate 0 06/09/21 23:48 Pain Level 7 06/10/21 05:32 Intake & Output 06/09/21 06/09/21 06/10/21 11:59 23:59 11:59 Intake Total 316 / 930 614 / 930 262.5 / 262.5 Output Total 650 / 950 300 / 950 375 / 375 Balance -334 / -20 314 / -20 -112.5 / -112.5 Intake: IV 316 / 750 434 / 750 262.5 / 262.5 Oral 180 / 180 Output: Urine 650 / 950 300 / 950 375 / 375 Other: Urine Color Yellow Yellow Straw Urine Appearance Clear Cloudy Clear Urine Odor None Normal Normal Comment unmeasured void Voiding Methods Toilet Urinal Urinal Data Completed and Pending Labs on day of discharge: Preliminary micro results at discharge 06/07/21 22:30 Blood Culture - Preliminary Blood NO GROWTH 48 HOURS 06/07/21 21:35 Blood Culture - Preliminary Blood NO GROWTH 48 HOURS [facility] Medical History No significant past medical history Surgical History History of facial surgery Hardware to L jaw History of tonsillectomy Social History Smoking/Tobacco Use Status: Never Smoking risk assessment performed?: Yes Alcohol Intake: former Substance use type: does not use Do you feel safe at home: Yes Additional Social history: pt is [facility] an [facility] [place]
== END 2021-06-10 13:24 | disposition home or self-care (01) ==
LOC: ER 06-08 00:19 → MS 06-08 00:37
PROVIDERS: Surgery; Admitting Provider Surgery; Emergency Provider Physician Assistant; Visit Provider Surgery
PROC: (CPT 46040; principal; 2021-06-08 12:00)
DX: K61.0 Anal abscess (principal); L03.317 Cellulitis of buttock; Z20.822 Contact with and (suspected) exposure to COVID-19
CPT/HCPCS: 46040; 36415; 46050; 80053; 87040; 87635; 88305; 96361; 96365; 96367; 96375; 99285; J1650; 74177; 83605; 85025; G0378; J0131; J2250; J2270; J2543; J2704

== ENCOUNTER 2021-06-27 09:30 | Emergency (ER) | payer OTHER, SELFPAY ==
[2021-06-27 09:38] VITALS: BP 116/79; PULSE 99; RESP 16; TEMP 36.2; O2SAT 96
--- NOTE | 2021-06-27 09:46 | W.ED.GENAD ---
Discharge Plan Disposition Patient Disposition: HOME Condition: Stable Discharge Details Clinical Impression: Cutaneous abscess of face, Encounter for postoperative wound check Primary Care Provider: Unknown,Unknown ED Provider: Shira Ball Home Meds and New Rx's Prescriptions: New clindamycin HCl 150 mg capsule 450 mg PO TID 7 Days Qty: 63 RF: 0 lidocaine HCl 2 % jelly in applicator 1 applic topical BID PRNQty: 125 RF: 0 Continued calcium 500 mg Tablet 1,000 mg PO TID PRNRF: 0 hydroxyzine HCl 50 mg Tablet 50 mg PO QHS RF: 0 docusate sodium 100 mg Capsule 100 mg PO BID RF: 0 ibuprofen 600 mg Tablet 600 mg PO BID PRNRF: 0 acetaminophen [Tylenol 8 Hour] 650 mg tablet extended release 650 mg PO Q8H Qty: 30 RF: 0 No Action ondansetron HCl 8 mg Tablet 8 mg PO Q8H PRNRF: 0 escitalopram oxalate 10 mg Tablet 10 mg PO DAILY RF: 0 Discharge Instructions Instructions: Cellulitis (ED), Abscess (ED) Additional Instructions: You appear to have a left-sided facial infection. There was no pus drainage but the wound has been opened and will hopefully drain if pus develops. You have been prescribed an antibiotic to take as directed until finished. Your anal post-operative wound appears to be healing well. You have been prescribed lidocaine jelly to use twice daily as needed for pain relief. You were supposed to follow-up with general surgery for reevaluation in the office. Call their office today to confirm or reschedule this appointment. Return immediately to the emergency department if you develop any worsening or new concerning symptoms such as fever, worsening facial pain or swelling, worsening buttock pain or swelling or any other concerns. Referrals: Taty Nichole DO [OSTEOPATHIC DOCTOR] - Discharge Data Discharge Date/Time-TO BE ENTERED AT DEPARTURE: 06/27/21 10:50 Discharge Physician: Shira Ball Medical Decision Making 51-year-old male who is just over 2 weeks status post I&D of perianal labs with general surgery presents for evaluation for pain within the postoperative wound as well as for a left facial infection for the past few days. Patient appears comfortable and nontoxic. Vitals within normal limits. The perianal area appears to be healing very well, no signs of abscess, cellulitis, drainage or bleeding. The left facial cheek notes a 2 x 2 centimeter area of tender erythematous induration with a central yellow crust. Discussed the perianal pain with general surgery and reassured that as patient has no fever, pain is not worsening, and the site appears to be healing very well, no indication for lab work or imaging at this time and this is likely the expected postoperative course for I and D in this location. Patient was given lidocaine jelly applicator here and sent with a prescription. The left facial wound was cleaned with chlorhexidine wash, injected with 3 cc of lidocaine with epinephrine and incised with use of an 11 blade scalpel. Only minimal bloody drainage, no pus drainage. Area was irrigated, topical antibiotics and dressing applied. We will treat this facial cellulitis with clindamycin. He was given a dose here, additional to go and a prescription. Patient never followed up with his postop appointment with general surgery. He was placed again on general surgery follow-up list for his post-op visit. Advised to follow up with the primary care doctor for re-evaluation. Usual and customary return precautions given prior to discharge. Medical Records Medical records reviewed: Yes I reviewed the patient's medical records. HPI General Mode of arrival: ambulatory. Date/Time Provider Initiated Documentation: 06/27/21 09:35. Limitations to Documentation: no limitations. Information obtained by: patient. HPI Narrative: Patient is a 51-year-old male who is just over 2 weeks status post I&D of perianal abscess here with general surgery presents for reevaluation as he has continued ongoing pain within his anus at the I&D site. Patient states the pain is not worsening, states that it is slowly improving but still present. He states he stopped taking his stool softeners because he was already having loose stools and diarrhea at times. He denies any fever, nausea, vomiting, abdominal pain. He also states that he has had a facial swelling, redness and pain for the past few days. States he tried to pop the area but now is worse. He states he has also been on antibiotics twice in the past several weeks for dental infections. He finished his antibiotics from his perianal abscess and states he is no longer currently on antibiotics at this time Related Data Home Medications Medication Instructions Recorded Confirmed calcium 1,000 mg PO TID PRN 06/07/21 06/27/21 docusate sodium 100 mg PO BID 06/07/21 06/27/21 hydroxyzine HCl 50 mg PO QHS 06/07/21 06/27/21 ibuprofen 600 mg PO BID PRN 06/07/21 06/27/21 ondansetron HCl 8 mg PO Q8H PRN 06/07/21 06/27/21 acetaminophen [Tylenol 8 Hour] 650 mg PO Q8H #30 tab 06/10/21 06/27/21 clindamycin HCl 450 mg PO TID 7 Days #63 cap 06/27/21 escitalopram oxalate 10 mg PO DAILY 06/27/21 06/27/21 lidocaine HCl 1 applic TOPICAL BID PRN #125 ml 06/27/21 Previous Rx's Medication Instructions Recorded acetaminophen [Tylenol 8 Hour] 650 mg PO Q8H #30 tab 06/10/21 clindamycin HCl 450 mg PO TID 7 Days #63 cap 06/27/21 lidocaine HCl 1 applic TOPICAL BID PRN #125 ml 06/27/21 Allergies Allergy/AdvReac Type Severity Reaction Status Date / Time No Known Allergies Allergy Unverified 06/27/21 09:42 General Stated Complaint: RashLesion JANESSA: 3 Review of Systems All systems reviewed & are unremarkable except as noted in HPI and below Constitutional Constitutional: Reports as per HPI, Denies chills and Denies fever(s) Eyes Eyes: Denies blurry vision ENT Ears, Nose, Mouth, and Throat: Denies dizziness, Denies sore throat and Denies throat swelling Cardiovascular Cardiovascular: Denies chest pain and Denies dyspnea Respiratory Respiratory: Denies cough and Denies dyspnea Gastrointestinal Gastrointestinal: Denies abdominal pain, Denies diarrhea and Denies vomiting Genitourinary Genitourinary: Denies hematuria and Denies dysuria Musculoskeletal Musculoskeletal: Denies back pain and Denies numbness Integumentary/Breasts Skin/Breast: Reports lesions and Denies rash Neurologic Neurologic: Denies dizziness, Denies localized weakness and Denies numbness Allergic/Immunologic Allergic/Immunologic: Denies throat swelling [facility] Medical History No significant past medical history Surgical History History of facial surgery Hardware to L jaw History of tonsillectomy Social History Smoking/Tobacco Use Status: Never Smoking risk assessment performed?: Yes Alcohol Intake: former Substance use type: does not use Do you feel safe at home: Yes Additional Social history: pt is currently an inmate at [facility] Exam Const General: cooperative, healthy appearing and no acute distress HENMT Head: normal to inspection Ears: hearing grossly normal bilaterally, external ears normal and TM's normal bilaterally General nose exam: external nose normal Face and sinus: normal facial exam Face images: 1. 2 x 2 centimeter tender, erythematous, indurated mass on the left facial cheek. 2. 4 x 4 millimeter yellow crust in the center of induration. Mouth: no drooling and no trismus Teeth and gingiva: caries, poor dentition and other (Tender to palpation left upper teeth, caries throughout, no abscess noted) Throat: posterior oropharynx normal Eyes General: appearance normal, both eyes and all related structures Pupils: PERRL EOM: EOM intact bilaterally Neck Neck: normal visual inspection and No submandibular swelling Lymphatic: no lymphadenopathy noted Chest Chest: normal inspection of the chest and no tenderness Resp Effort & Inspection: normal respiratory effort and able to speak in complete sentences Cardio Rate: regular rate GI Inspection: normal to inspection Palpation: soft, not firm, not rigid and nontender Auscultation: normal bowel sounds Other: Anal and inner buttock region inspected without evidence of erythema, edema, fluctuance, induration, drainage or bleeding. Skin General skin exam: no rashes or lesions noted Neuro General: patient alert, patient awake and patient oriented x3 Cognition: normal cognition Speech: speech normal Motor: muscle tone normal throughout Sensory Exam: no sensory deficits noted Extrem General: normal to inspection, full ROM, capillary refill normal, no calf tenderness bilaterally and no edema Psych Appearance: grossly normal Mental Status: mental status grossly normal Speech and Movement: speech and movement normal Affect: normal affect Course Vital Signs Vital signs: Vital Signs Temperature 97.2 F L 06/27/21 09:38 Pulse 99 H 06/27/21 09:38 Respiratory Rate 16 06/27/21 09:38 Blood Pressure 116/79 06/27/21 09:38 Pulse Oximetry 96 06/27/21 09:38 Temperature 97.2 F L 06/27/21 09:38 Temperature Source Skin 06/27/21 09:38 Pulse 99 H 06/27/21 09:38 Respiratory Rate 16 06/27/21 09:38 Respiratory Effort Non-Labored 06/27/21 09:38 Blood Pressure 116/79 06/27/21 09:38 Blood Pressure Position Sitting 06/27/21 09:38 Pulse Oximetry 96 06/27/21 09:38 Oxygen Delivery Method Room Air 06/27/21 09:38 Oxygen Flow Rate 0 06/27/21 09:38 Pain Level 6 06/27/21 09:38
[2021-06-27] MEDS: Clindamycin 150 MG CAP 450 MG PO (10:25)
--- NOTE | 2021-06-27 10:41 | NUR.NOTE ---
Nursing Note: Ref[facility] follow up of previous anal surgery [facility]. Consulted with Dr. Nichole. Nahomy Rapp
[2021-06-27] MEDS: Lidocaine 2% Jelly 6 ML SYR TP (10:51)
== END 2021-06-27 10:50 | disposition home or self-care (01) ==
LOC: ER 10:54
PROVIDERS: Emergency Provider Physician Assistant
DX: L02.01 Cutaneous abscess of face (principal); K61.0 Anal abscess; Z48.01 Encounter for change or removal of surgical wound dressing
CPT/HCPCS: 10060; 99281

== ENCOUNTER → 2022-01-12 00:42 | Outpatient (CLI) | payer OTHER, SELFPAY ==
--- NOTE | 2022-01-12 | DI.US_ITS ---
Exam(s) US ABDOMEN EXAM: US ABDOMEN CLINICAL HISTORY: FURTHER EVALUATION HEP C TECHNIQUE: Ultrasound of complete upper abdomen performed using standard protocol. COMPARISON: CT CT ABDOMEN PELVIS W from 06/07/2021 FINDINGS: There is no ascites evident. LIVER: In the left hepatic lobe there is a 1.6 x 1.5 x 1.6 cm well-defined hyperechoic nodule which h as appearance of a probable hemangioma and most probably corresponds to the finding seen on the CT sc an of 06/07/2021. GALLBLADDER/BILIARY: There are no gallstones. No gallbladder wall edema nor pericholecystic fluid. The common hepatic duct isnot dilated, measuring 4mm at the level of jem hepatis. PANCREAS: There is no evidence of pancreatic mass nor dilatation of the pancreatic duct. SPLEEN: The spleen is not enlarged and there are no intrasplenic lesions evident. KIDNEYS:Kidneys exhibit normal size with no evidence of solid mass, calculus, nor hydronephrosis. No cortical cysts evident. ABDOMINAL AORTA: There is no evidence of abdominal aortic aneurysm. IVC: Normal diameter where visualized. IMPRESSION: 1. No evidence of cholelithiasis nor dilatation of the biliary tree. 2. 16 x 15 x 16 millimeter hyperechoic finding in the left hepatic lobe which has appearance of a pr obable of angioma and corresponds to the larger of the 2 findings seen in the liver on CT scan of 01/2021. The previously described smaller finding is in the inferior aspect of the right hepatic lob e and is not seen on this ultrasound. It is most probably also a benign hemangioma. 3. There is no ascites. DATA REPOSITORY:
== END ==
PROVIDERS: Visit Provider Emergency Medicine
CPT/HCPCS: 76700